=== PATIENT | male | born 1945 | race American Indian/Alaskan Native ===

== ENCOUNTER 2021-04-17 06:35 | Emergency (ER) | payer MEDICARE ==
[2021-04-17] MEDS ORDERED: ROCURONIUM 50 MG/5 ML INJ IV ONE (06:45)
[2021-04-17] MEDS ORDERED: KETAMINE 500 MG/5 ML VIAL MDV IV ONE (07:23)
[2021-04-17] MEDS ORDERED: VANCOMYCIN 1,250 MG in SODIUM CHLORIDE 0.9% 500 ML 500 ML IV ONE (07:25)
[2021-04-17] MEDS ORDERED: MINERAL OIL/PETROLATUM, WHITE OPHTH OINT 3.5 GM OU PRN ×2 (07:25→07:31)
[2021-04-17] MEDS ORDERED: CEFEPIME/NS 2 GM/100 ML 2 GM/100 ML BAG IV ONE (07:25)
[2021-04-17] MEDS ORDERED: LACTATED RINGERS 1000 ML IV SOLN IV ONE (07:25)
[2021-04-17] MEDS ORDERED: LIP THERAPY VASELINE TP PRN (07:25)
[2021-04-17] MEDS ORDERED: fentaNYL 100 MCG/2 ML INJ IV PRN (07:31)
[2021-04-17] MEDS ORDERED: HYDROCORTISONE SOD SUCC 100 MG/2 ML VIAL IV ONE (07:32)
--- NOTE | 2021-04-17 07:36 | Emergency Department Report ---
ED General Adult HPI - General Chief complaint: Dyspnea/Respdistress Stated complaint: DIFFICULTY BREATHING PUI?: Yes Time Seen by Provider: 04/17/21 07:24 Source: EMS (Verbal report received from emergency medical services. EMS documentation not available at time of chart dictation ), RN notes reviewed, old records reviewed Mode of arrival: Stretcher Limitations: Altered Mental Status, Physical Limitation - History of Present Illness Initial comments: The patient was evaluated in the emergency department for symptoms described in the history of present illness. He/she was evaluated in the context of the global COVID-19 pandemic, which necessitated consideration that the patient might be at risk for infection with the virus that causes COVID-19. Institutional protocols and algorithms that pertain to the evaluation of patients at risk for COVID-19 are in a state of rapid change based on information released by regulatory bodies including the CDC and federal and state organizations. These policies and algorithms were followed during the patient's care in the emergency department. Please note that these policies, procedures and recommendations changed on a rapid basis. The patient is a 75-year-old gentleman. He is currently a resident at a local longterm. His primary physicians are Dr. Newman, Dr. Azul. As per enclosed longterm paperwork, he is currently a full code. Past medical history includes restlessness and agitation, renal insufficiency, NSTEMI, hypertension, Helicobacter pylori. His Covid vaccination status is not known at this time. He presents to the ER via EMS with an EMS articulated complaint of respiratory distress. Patient himself is altered and obtunded, with vomitus in his airway, and inability to protect airway. He is not accompanied by friends or family at this time for collateral information or additional information. As per longterm documentation, he was referred here for a blood pressure of 86/60, respirations of 22, pulse of 125. Patient's acutely altered and obtunded, and not able to describe the qualitative nature of symptoms, exacerbating factors relieving factors or aggravating factors. given alteration in mental status, no healthcare proxy present, EMS indicating that patient is a full code, and obvious signs of inability to protect airway, the patient is emergently intubated by myself. Patient placed on nasal cannula at 15 L/min, and receives gzp-ictfk-lwrq ventilation simultaneously. Airway obstruction. He is induced with 100 mg of ketamine, and paralyzed with 100 mg of rocuronium. He is intubated with 1 attempt with a 7.5 endotracheal tube. Shortly after intubation, the patient lost pulses, for approximately 5 to 7 min utes. He received standard ACLS interventions, please see nursing code sheet, and we are able to obtain return of spontaneous circulation. After return of spontaneous circulation, patient continues to have a GCS of 3, and is continued on supportive care. Given hypotension, cardiac arrest, suspicion for sepsis, patient is emergently administratively consented by myself for sterile central line placement. Right internal jugular central line is placed by myself, using ultrasound guidance, with no obvious complications. Laboratory studies and x-ray pending. Please note that this hospital does not have a postarrest hypothermia protocol. Discussed with critical care physician, Dr. Turcios Her group will follow in consultation. Patient will require placement into the ICU. Overall neurologic prognosis is very poor. -: unknown - Related Data Allergies Allergy/AdvReac Type Severity Reaction Status Date / Time No Known Allergies Allergy Verified 04/17/21 06:47 ED Review of Systems ROS: Stated complaint: DIFFICULTY BREATHING Other details as noted in HPI Comment: Unobtainable due to pts medical conditions ED Physical Exam - General Limitations: Altered Mental Status, Physical Limitation, Other General appearance: obtunded - Head Head exam: Present: atraumatic, normocephalic - Eye Eye exam: Present: normal appearance - ENT ENT exam: Present: normal external ear exam (Poor dentition. Copious vomitus in the oropharynx) - Neck Neck exam: Present: normal inspection - Respiratory Respiratory exam: Present: respiratory distress, rhonchi - Cardiovascular Cardiovascular Exam: Present: normal rhythm, tachycardia. Absent: systolic murmur, diastolic murmur, rubs, gallop - GI/Abdominal GI/Abdominal exam: Present: soft, other (There is a feeding tube noted.). Absent: distended, tenderness, guarding, rebound, rigid, pulsatile mass - Rectal Rectal exam: Present: normal inspection, normal rectal tone - exam: Present: normal inspection - Extremities Exam Extremities exam: Absent: normal inspection (Patient has dusky bilateral lower extremities. He also has evidence of necrotic tissue on the plantar aspect of his right foot. He has 1+ femoral pulses bilaterally. He has 1+ radial pulses bilaterally. Dorsalis pedis pulses not appreciated.), tenderness - Back Exam Back exam: Absent: tenderness - Neurological Exam Neurological exam: Present: altered, other (Prior to intubation, the patient is awake, not speaking, eyes opening spontaneously he is acutely altered and encephalopathic) - Skin Skin exam: Present: warm, other (Necrotic wounds noted to the foot) ED Course Vital Signs 04/17/21 04/17/21 04/17/21 07:02 07:55 08:33 Pulse Rate 120 H Blood Pressure 107/53 O2 Sat by Pulse 93 95 0 L Oximetry - Reevaluation(s) Reevaluation #1: 04/17/21 07:42 Differential diagnosis, including but not limited to: Bacteremia, viremia, pneumonia, urinary tract infection, septic shock, thyroid derangement, Assessment and plan: 75-year-old gentleman, with acute respiratory failure, and shock, status post cardiac arrest, with return of spontaneous circulation, with a post ROSC GCS of 3, this hospital does not have hypothermia protocol in place. Patient will be evaluated and treated as per our code sepsis protocol, with aggressive IV fluids, aggressive antibiotics, hydrocortisone ordered in case there is a component of adrenal insufficiency, and he will be admitted to our critical care unit. At this point in time, he is too unstable to be moved to CAT scan, therefore, we will not be able to obtain CAT scan of the brain, if he is able to be medically optimized, the inpatient team may obtain CT scan of the brain. Critical care has been consulted. Overall neurologic prognosis is very poor. Initial arterial blood gas demonstrates pH of 7.1 awake, PaCO2 of 59, PaO2 of 70, and bicarbonate of 18. This is likely a primary respiratory acidosis, with likely secondary metabolic acidosis 04/17/21 07:54 At the time of this writing, the patient experienced a second cardiac arrest, and was pulseless for approximately 5 minutes. ACLS performed. We now have ROSC. Please see nursing code sheet. Awaiting laboratory studies, EKG, and chest x- ray. 04/17/21 08:18 Patient arrested again. ACLS continued. Unable to obtain pulses in spite of vigorous resuscitative measures. No pulses obtained on physical examination or Doppler interrogation. Bedside transthoracic echocardiogram demonstrates essentially ventricular standstill, without coronary ventricular activity. Patient in pulseless electrical activity, resuscitative efforts were terminated secondary to multiple arrest, medical futility, and inability to obtain return of spontaneous circulation. Critical care physician subsequently updated - Central Line Placement Right IJ Consent Obtained: emergent situation Time Out Performed: No (Emergency situation. Emergent consent administratively provided) MD Prep: mask, gown, gloves Central Line Prep: Povidone-Iodine 1% Local Anesthesia Used: Lidocaine 1% Amount of Anesthesia Used (mls): 3 Ultrasound Used for Placement: Yes Central Line Lumen Inserted: triple Reason for Insertion: Emergency Venous Access Bloods Obtained for Lab: Yes Central Line Position: good blood return, all ports aspirated, flus, sutured in place with 2-0 Dressing Applied: Tegaderm Patient Tolerated Procedure: well Additional Comments: Patient prepped and draped in typical maximal sterile fashion. Using ultrasound guidance, right-sided internal jugular vein is cannulated with an 18-gauge needle, with 3 inch plastic catheter, which is visualized in the longitudinal and transverse dimensions with real-time [id number] ultrasonography, sub sequently guidewire, 0.032 x 60 cm, J-tip with a 3 mm radius is then inserted into the guiding catheter, and appropriate luminal placement is confirmed with real-time [id number] ultrasound guidance. A stab incision is made with an 11-gauge blade, and then incision is dilated. The 7 [place] triple-lumen catheter has each of the 3 ports flushed with sterile saline in advance of placement. Then, a 7 [place] triple-lumen catheter is inserted over the guidewire, and sutured to the skin. Real-time ultrasound guidance confirms appropriate luminal placement. Ports are aspirated easily, and flushed easily. Blue Biopatch is then affixed to the skin, and Tegaderm is applied to the skin. This patient tolerated the procedure well, and without obvious complication. Blood loss estimated at less than 50 cc. - Intubation Time Out Performed: No (Emergency situation) Sedative: Ketamine Mg Given: 100 Paralytic: Rocuronium Mg Given: 100 Laryngoscope: fiberoptic video scope Size: 3 ET Tube Size: 7.5 Tube Secured Depth (cm): 23 Tube Secured Location: teeth Tube Placement Confirmation: visualized tube passing t, equal breath sounds bilat, no breath sounds over epi, confirmation by capnometr Patient Tolerated Procedure: other (Prior to intubation, the patient had vomitus in his mouth.) Intubation Complications: other (Patient with vomitus in his mouth prior to intubation. Suspect preintubation aspiration.) ED Medical Decision Making - Lab Data Result diagrams: 04/17/21 07:32 04/17/21 07:32 Vital Signs 04/17/21 07:02 Pulse Rate 120 H Blood Pressure 107/53 O2 Sat by Pulse 93 Oximetry Lab Results 04/17/21 04/17/21 Range/Units 06:56 07:32 WBC 3.6 L (4.5-11.0) K/mm3 RBC 2.75 L (3.65-5.03) M/mm3 Hgb 7.9 L (11.8-15.2) gm/dl Hct 26.7 L (35.5-45.6) % MCV 97 H (84-94) fl MCH 29 (28-32) pg MCHC 30 L (32-34) % RDW 17.9 H (13.2-15.2) % Plt Count 284 (140-440) K/mm3 POC Glucose 204 H (70-105) mg/dL - EKG Data -: EKG Interpreted by Al EKG shows normal: sinus rhythm Rate: normal - EKG Data When compared to previous EKG there are: previous EKG unavailable 04/17/21 07:59 The EKG is interpreted at 07: 54 Sinus rhythm, with a rate of 99 bpm. There is a rightward axis deviation. There is a right bundle branch block. There is a normal P wave axis. There is nonspecific lateral ST depression. There is a first-degree AV block. This is an abnormal EKG. This is not a STEMI. There is no prior EKG available for comparison. - Radiology Data Radiology results: pending Critical Care Time: Yes Critical care time in (mins) excluding proc time.: 90 Critical care attestation.: If time is entered above; I have spent that time in minutes in the direct care of this critically ill patient, excluding procedure time. Critical Care Time: Critical care time includes multiple bedside reevaluations, interpretation of laboratory and radiology studies, time spent supervising CPR, and active resuscitation, and managing a critically ill patient, with acute shock, requiring continuous bedside evaluations and reevaluations, requiring consultation with hospital medicine and critical care medicine. This does not include procedure time. ED Disposition Clinical Impression: Septic shock, Acute respiratory failure, Cardiac arrest, Renal insufficiency, Elevated CK Disposition: 20 Is pt being admited?: No Does the pt Need Aspirin: No Condition: Undetermined
[2021-04-17 07:52] LABS: Hematocrit 26.7 % (35.5-45.6); Hemoglobin 7.9 gm/dl (11.8-15.2); Mean Corpuscular HGB Conc 30 % (32-34); Mean Corpuscular Volume 97 fl (84-94); Platelet Count 284 K/mm3 (140-440); Red Blood Count 2.75 M/mm3 (3.65-5.03); Red Cell Distribution Width 17.9 % (13.2-15.2)
[2021-04-17 07:58] VITALS: BP 107/53
[2021-04-17] MEDS ORDERED: KETAMINE 500 MG/5 ML VIAL MDV IV NR (08:00)
[2021-04-17] MEDS ORDERED: NORepinephrine/NS 8 MG-250 ML 8 MG/250 ML INFUS..BTL IV SCH (08:00)
[2021-04-17] MEDS ORDERED: FAMOTIDINE 20 MG/2 ML INJ IV NR (08:00)
[2021-04-17] MEDS ORDERED: VANCOMYCIN PHARMACY TO DOSE IV SCH (08:00)
[2021-04-17] MEDS ORDERED: fentaNYL DRIP Premix 2,000 MCG/100 ML BAG IV SCH (08:00)
[2021-04-17 08:01] LABS: INR 1.22 (0.87-1.13)
[2021-04-17 08:02] LABS: Partial Thromboplastin Time 24.8 Sec. (24.2-36.6)
[2021-04-17 08:12] LABS: Calcium 9.1 mg/dL (8.4-10.2)
[2021-04-17 08:30] LABS: Band Neutrophils # (Manual) 0.6 K/mm3; Total Cells Counted 100
[2021-04-17 08:31] LABS: Anisocytosis 1+; Platelet Estimate Consistent w Auto
[2021-04-17 08:34] LABS: Chol/HDL Ratio 3.19 %
[2021-04-17] MEDS ORDERED: SENNOSIDES/DOCUSATE SODIUM 8.6/50 MG TAB FEEDTUBE SCH (10:00)
[2021-04-17] MEDS ORDERED: FAMOTIDINE 20 MG/2 ML INJ IV SCH ×2 (10:00)
== END 2021-04-18 05:33 ==
LOC: ED 06:35
DX: A41.9 Sepsis, unspecified organism (principal); R65.21 Severe sepsis with septic shock; I46.9 Cardiac arrest, cause unspecified; N28.9 Disorder of kidney and ureter, unspecified; J96.00 Acute respiratory failure, unspecified whether with hypoxia or hypercapnia; R74.8 Abnormal levels of other serum enzymes
CPT/HCPCS: 31500; 36415; 36556; 80053; 80061; 82140; 82550; 82962; 83735; 84443; 84484; 85007; 85025; 85610; 85730; 87040; 92950; 93005; 96374; 99291; 99292; J0692; J1720; J1956; J3490; J7120; 94002; J3370; J7040